=== PATIENT | female | born 1970 ===

== ENCOUNTER 2020-06-16 14:15 | Emergency (ER) | payer OTHER | END 2020-06-16 16:26 | disposition home or self-care (01) | LOC: ERS 14:15 | DX: S51.011A Laceration without foreign body of right elbow, initial encounter (principal); M06.9 Rheumatoid arthritis, unspecified; W01.0XXA Fall on same level from slipping, tripping and stumbling without subsequent striking against object, initial encounter | CPT/HCPCS: 99283 ==